=== PATIENT | male | born 1985 | race Caucasian/White ===

== ENCOUNTER 2016-11-10 10:40 | Emergency (ER) | payer MEDICARE, MEDICAID ==
[~2016-11-10] VITALS: Ht 175.3 cm; Wt 101.6 kg
[2016-11-10 10:40] VITALS: BP 134/82
[2016-11-10 11:31] LABS: APPEARANCE,URINE CLEAR; KETONES,URINE NEGATIVE (NEGATIVE); LEUKOCYTE ESTERASE ,URINE NEGATIVE (NEGATIVE); NITRITE,URINE NEGATIVE (NEGATIVE); PH,URINE 5 (4.5-8.0); PROTEIN,URINE NEGATIVE (NEGATIVE); UROBILINOGEN,URINE NORMAL MG/DL (0.0-1.0)
--- NOTE | 2016-11-10 12:41 | Emergency Room Report ---
History of Present Illness General Chief Complaint: Behavioral Complaint Source: Patient Present Illness HPI This patient states that he was in recuperative care and was discharged today because he does not have money to pay for any further days at recerative care. He states that he does not have any place to stay. He is requesting a place to stay. He has no other complaints. He would like to speak with a social work coordinator. Allergies: Coded Allergies: No Known Allergies (Unverified , 11/10/16) Patient History Past Medical History: see triage record, psych hx - Hx Drug dependence Social History: Denies: alcohol use, drug use, smoking Reviewed Nursing Documentation: PMH: Agreed, PSxH: Agreed Nursing Documentation-PMH Past Medical History: No History, Except For History Of Psychiatric Problem: Yes - ocd, anxiety, depression Review of Systems All Other Systems: negative except mentioned in HPI Physical Exam Vital Signs Date Time Temp Pulse Resp B/P Pulse Ox O2 Delivery O2 Flow Rate FiO2 11/10/16 10:37 97.9 84 16 134/82 98 Room Air Sp02 EP Interpretation: reviewed, normal General Appearance: no apparent distress, alert, GCS 15, non-toxic Head: normocephalic, atraumatic Eyes: bilateral eye PERRL, bilateral eye normal inspection ENT: hearing grossly normal, normal pharynx, no angioedema, normal voice Neck: full range of motion, supple/symm/no masses Respiratory: no respiratory distress, no retraction, no accessory muscle use, speaking full sentences Cardiovascular #1: no edema Rectal: deferred Musculoskeletal: back normal, gait/station normal, normal range of motion Neurologic: alert, oriented x3, responsive, motor strength/tone normal, sensory intact, speech normal Psychiatric: judgement/insight normal, memory normal, mood/affect normal, no suicidal/homicidal ideation Skin: normal color, no rash, warm/dry, well hydrated Medical Decision Making Diagnostic Impression: Primary Impression: Homeless ER Course Patient has a psychiatric history and is requesting housing. He was seen by the social work coordinator. The social work coordinator did contact the recerative care facility and he will be returning care for further resources. Apparently they did refer him to [facility]. Patient is otherwise medically stable without medical conditions. The patient was given bus tokens [facility] and instructions on how to get there. I did speak with the patient's dad who is aware of the situation. I requested the patient's dad help his son obtain housing. Regardless, this patient is articulate and organized and able to [facility] help there. The patient was also given a list of the local shelters and low cost housing by the social work coordinator. Labs Test 11/10/16 10:55 Urine Color Yellow Urine Appearance Clear Urine pH 5 (4.5-8.0) Urine Specific [place] 1.030 (1.005-1.035) Urine Protein Negative (NEGATIVE) Urine Glucose (UA) Negative (NEGATIVE) Urine Ketones Negative (NEGATIVE) Urine Occult Blood Negative (NEGATIVE) Urine Nitrite Negative (NEGATIVE) Urine Bilirubin Negative (NEGATIVE) Urine Urobilinogen Normal MG/DL (0.0-1.0) Urine Leukocyte Esterase Negative (NEGATIVE) Urine Opiates Screen Negative (NEGATIVE) Urine Barbiturates Screen Negative (NEGATIVE) Phencyclidine (PCP) Screen Negative (NEGATIVE) Urine Amphetamines Screen Positive (NEGATIVE) Urine Benzodiazepines Screen Positive (NEGATIVE) Urine Cocaine Screen Negative (NEGATIVE) Urine Marijuana (THC) Screen Positive (NEGATIVE) Last Vital Signs Date Time Temp Pulse Resp B/P Pulse Ox O2 Delivery O2 Flow Rate FiO2 11/10/16 10:40 97.9 84 16 134/82 98 Room Air Disposition: HOME, SELF-CARE Condition: Stable Referrals: NALDO SERRANO GRPREFERRING (PCP) Patient Instructions: Self-Destructive Behavior CUATE ROSARIO D.O. November 10, 2016 12:41
[2016-11-10 13:12] VITALS: BP 134/82
== END 2016-11-10 13:12 | disposition home or self-care (01) ==
LOC: EDBD 10:40 → EMR 11:00
DX: Z59.0 Homelessness (principal); Z86.59 Personal history of other mental and behavioral disorders
CPT/HCPCS: 80300; 81003; 99282